=== PATIENT | male | born 1985 | race Caucasian/White ===

== ENCOUNTER 2018-03-18 13:05 | Emergency (ER) | payer OTHER ==
[2018-03-18] MEDS ORDERED: LIDOCAINE 4%/MENTHOL 1% PATCH TD ONE (13:25)
[2018-03-18] MEDS ORDERED: ACETAMINOPHEN 500 MG TAB PO ONE (13:25)
--- NOTE | 2018-03-18 13:30 | EDPHY ---
H & P Time Seen by Provider: 03/18/18 13:18 HPI/ROS: CHIEF COMPLAINT: Knee pain HISTORY OF PRESENT ILLNESS: This is a 32-year-old male who states that a month ago he bumped his right knee on the corner of a refrigerator cooler. He was uncomfortable for several weeks and then he began to notice an area of swelling. He was seen at [facility] and had x-rays obtained 1 week ago which demonstrated no fracture. He has an appointment with workman's compensation in 2 days from now. He went back to work today and presents complaining of increased discomfort in the knee with increase in the "bump" with 2 lumps being palpable. He denies any new intercurrent trauma. No pain into his calf. No swelling of his leg. No prior history of DVTs or PEs. No fever, chills, chest pain, shortness of breath, palpitations, vomiting, diarrhea, urinary complaints, headache, lightheadedness. REVIEW OF SYSTEMS: A comprehensive 10 system review of systems was reviewed and is otherwise negative aside from elements mentioned in the history of present illness. PAST MEDICAL HISTORY: Denies. SOCIAL HISTORY: Works as a cook. GENERAL APPEARANCE: Alert, reports pain in his knee. FOCUSED EXAM OF right knee: Visible hematoma present just over the lateral knee , but at the level of the fibular head. This is mildly tender to palpation. A firm superficial thrombus is palpable in this area. No overlying erythema. No tenderness of the patella. No bony tenderness elicited. No fullness in the popliteal fossa. Calf compartment is soft, negative Homans. Neurovascular exam: Good capillary refill, normal motor exam, normal neurologic exam. Smoking Status: Current every day smoker Constitutional: Initial Vital Signs Temperature (C) 37.1 C 03/18/18 13:11 Heart Rate 106 H 03/18/18 13:11 Respiratory Rate 16 03/18/18 13:11 Blood Pressure 151/80 H 03/18/18 13:11 O2 Sat (%) 96 03/18/18 13:11 O2 Delivery Mode Room Air Allergies/Adverse Reactions: No Known Allergies Allergy (Verified 03/18/18 13:11) Home Medications: Medication Instructions Recorded Tramadol HCl 03/18/18 MDM/Departure - MDM Medications Given: Discontinued Medications Acetaminophen (Tylenol) 1,000 mg PO EDNOW ONE Stop: 03/18/18 13:26 Last Admin: 03/18/18 13:32 Dose: 1,000 mg Miscellaneous Information (Patch Removal) 1 ea TD DAILY21 YAMILETH Stop: 09/14/18 20:59 Last Admin: 03/18/18 13:33 Dose: Not Given Miscellaneous Medication (Icy Hot Lidocaine/Menthol 4%/1% Patch) 1 patch TD EDNOW ONE Stop: 03/18/18 13:26 Last Admin: 03/18/18 13:33 Dose: 1 patch ED Course/Re-evaluation: Suspect the patient has a superficial thrombus in the area where he had previously had a small hematoma. No evidence of deep venous thrombus in the patient has been up and active since his initial accident although favoring his knee somewhat. He has an appointment in 2 days at [facility]. Will begin treatment for superficial thrombophlebitis, and asked the patient follow up with [facility]. Off work until re-evaluated. Understands that he should return to the emergency department or seek care urgently if his symptoms are worsening despite the above treatment, if he has increased pain in the back of his knee or into his calf, or other concerns. Differential Diagnosis: Differential diagnosis for the patient's knee pain was considered including but not limited to contusion, abrasion, superficial thrombophlebitis, deep venous thrombus, knee strain, hematoma. - Depart Disposition: Home, Routine, Self-Care Clinical Impression: Superficial thrombophlebitis of leg, Knee pain Condition: Good Instructions: Superficial Thrombophlebitis (ED), Knee Pain (ED) Additional Instructions: I believe that you have a superficial clot in the swollen area on the side of your knee. Please apply a warm compress 2 to 3 times a day for 15-20 minutes to help with this discomfort. Please take a baby aspirin, 81 mg daily for the next 7 days. Please follow up as previously scheduled on Monday with workman's compensation. Using an Jhonatan wrap across the area of swelling may also help with the discomfort and provide some stability. Off work until you are seen on Monday. Stand Alone Forms: Work Comp Follow Up, Work Excuse Referrals: NONE *PRIMARY CARE P,. [Primary Care Provider] - As per Instructions
[2018-03-18 13:44] VITALS: BP 149/81
[2018-03-18] MEDS ORDERED: PATCH REMOVAL 1 EA PATCH TD SCH (21:00)
== END 2018-03-18 13:45 | disposition home or self-care (01) ==
LOC: CED 13:05
DX: I80.01 Phlebitis and thrombophlebitis of superficial vessels of right lower extremity (principal); S80.01XA Contusion of right knee, initial encounter; Y92.511 Restaurant or cafe as the place of occurrence of the external cause; W22.8XXA Striking against or struck by other objects, initial encounter; Y99.0 Civilian activity done for income or pay